=== PATIENT | male | born 1970 | race Caucasian/White ===

== ENCOUNTER 2024-11-13 05:24 | Inpatient (IN) | payer OTHER, SELFPAY ==
[2024-11-12 13:00] VITALS: BP 162/110; BMI 31.1
[2024-11-12 13:37] LABS: Hematocrit 49.3 % (39.0-52.0); Hemoglobin 16.9 g/dL (13.0-18.0); Mean Corp Hgb Conc. 34.3 g/dL (33.0-37.0); Mean Corpuscular Volume 95.0 fL (80.0-94.0); Nucleated Red Blood Cells % 0 % (-); Platelet Count 273 10^3/uL (130-400); Red Cell Dist. Width 13.0 % (11.5-14.5)
[2024-11-12 13:51] LABS: ALT (SGPT) 52 U/L (0-50); AST (SGOT) 48 U/L (17-59); Albumin 4.4 g/dl (3.5-5.0); Alkaline Phosphatase 64 U/L (38-126); Blood Urea Nitrogen 13 mg/dl (9-20); Calcium 8.4 mg/dl (8.4-10.2); Carbon Dioxide 20 mmol/L (22-30); Chloride 106 mmol/L (98-107); Estimated Creatinine Clearance 124 ml/min; Glucose 93 mg/dl (70-99); Potassium 4.5 mmol/L (3.5-5.1); Sodium 140 mmol/L (135-145); Total Protein 7.5 g/dl (6.3-8.2); eGFR > 60.00
[2024-11-12 14:00] VITALS: BP 137/85
--- NOTE | 2024-11-12 14:02 | ED.GENMED ---
History of Present Illness
<Graham Avery PA-C - Last Filed: 11/13/24 16:01>
General
Chief Complaint: Crisis Evaluation
Time Seen by Provider: 11/12/24 13:13
History of Present Illness
History of Present Illness:
54-year-old male presents to the emergency department for evaluation of suicidal ideation. He admits to alcohol intoxication, states he drank 'about a bottle' today. Unable to tell me when his last drink was today. He does not indicate a plan to
me but states 'yeah I thought about it'. He is agitated frequently screaming into the department 'just kill me now I want to be '.
Past History
<Graham Avery PA-C - Last Filed: 11/13/24 16:01>
Past History
ED Past Medical History: CAD, GERD, HTN and Hypercholesterolemia
ED Past Surgical History: Cardiac (Cardiac stent) and Other (Fundoplication)
Patient has exhibited threatening behavior?: No
PSI?: No
Social History
Tobacco: Former smoker
Alcohol: Former (Abstinent since 2012)
Drug: None
Personal:
Living: with family
Employment: Employed
Family History
Family History: Other (Noncontributory)
Review of Systems
<Graham Avery PA-C - Last Filed: 11/13/24 16:01>
Review of Systems
Allergies reviewed?: Yes
All Other Systems: ROS reviewed and negative except as documented in HPI and ROS
Phy Exam
<Graham Avery PA-C - Last Filed: 11/13/24 16:01>
Physical Exam
Physical Exam:
GEN: Well appearing, NAD, WDWN
HEENT: Oral mucosa moist, no scleral icterus
Cardiac: Regular rate
Lung: No respiratory distress, no tachypnea
MSK: No gross deformity or injuries
Skin: Good color, no pallor or jaundice, no rashes
Neuro: AO x3, moves all extremities freely, agitated, non cooperative
Psych: Calm, cooperative
Course
<Graham Avery PA-C - Last Filed: 11/13/24 16:01>
Orders/Labs/Results
Orders:
Orders
11/12/24 13:03
1:1 Observation - Suicide/ Violent Behavior As Directed
11/12/24 13:29
Alcohol Urgent
CBC/With Diff [Complete Blood Count/With Diff] Urgent
CMP [Comprehensive Metabolic Panel] Urgent
11/12/24 14:54
Crisis Consult Urgent
Reason for Consult: SI
11/12/24 22:45
Metoprolol [Lopressor] 5 mg IV NOW STA
11/13/24 00:26
Alcohol Routine
11/13/24 01:16
Amlodipine [Norvasc] 5 mg PO NOW STA
Lisinopril [Zestril] 20 mg PO NOW STA
11/13/24 02:17
Midazolam HCl [Versed] 5 mg IV NOW STA
11/13/24 02:56
Labetalol HCl [Trandate] 10 mg IV NOW STA
11/13/24 04:53
Admit/Transfer Patient As Directed
Co-Sign Provider:
Level of Care: Inpatient admission
Assign to:: Telemetry
Physician / Group: [place]
Diagnosis: Alcohol Withdrawal, Suicidal Ideation
Reason for Telemetry: Arrhythmia
Date to Stop Telemetry: 11/16/24
Time to Stop Telemetry: 11:00
Reason for Hospitalization: Alcohol Withdrawal, Suicidal Ideation
Expected length of stay greater than two midnights?: Yes
ELOS- Estimated Length of Stay in days: 2
I certify the patient meets the requirements for IP care: Yes
PRN Pain Medication Management As Directed
May give lesser potent ordered pain med per pt: Yes
preference::
Protocol:: Medication orders for pain may be administered in a
manner that supports deferring to patient preference
when the pt is:
- Requesting an ordered lesser potent pain medication.
Least to most potent pain medications are defined
as: acetaminophen < NSAID < tramadol < opioids
(morphine, oxycodone, hydromorphone).
- Requesting a lesser dose of the same medication IF
ORDERED.
- Requesting a less intrusive route of administration
if both routes are prescribed by the provider (PO <
IV).
11/13/24 04:54
Code Status As Directed
Resuscitation Status: Full Code
11/13/24 07:23
0.9% Sodium Chloride 1000 ml [Nss] 1,000 ml IV 125 mls/hr
0.9% Sodium Chloride [Nss (Preservative Free)] See Protocol IV PRN PRN
FOLic ACID [Folvite] 1 mg 0.9% Sodium Chloride 50 ml [Nss] 50 ml IV DAILYPRN
HydrALAZINE [Apresoline] 10 mg IV Q6HPRN PRN
Lorazepam [Ativan] 1 mg PO Q2HPRN PRN
Ondansetron Injectable [Zofran] 4 mg IV Q6HPRN PRN
11/13/24 07:36
diazePAM [Valium Injection] 10 mg IV Q1HPRN PRN
diazePAM [Valium Injection] 5 mg IV Q1HPRN PRN
11/13/24 08:00
Amlodipine [Norvasc] 5 mg PO BID
Aspirin Chewable [Low Strength Aspirin] 81 mg PO DAILY
Clonazepam [Klonopin] 1 mg PO BID
FOLic ACID [Folvite] 1 mg PO DAILY
Pantoprazole [Protonix IV] 40 mg IV DAILY
Spironolactone [Aldactone] 25 mg PO DAILY
Thiamine Injection 200 mg IV Q12
11/13/24 11:00
Acetaminophen [Tylenol] 650 mg PO Q4HPRN PRN
Clonidine [Catapres] 0.1 mg PO BID
11/13/24 11:00
Case Management Consult Once
Case Management Consult: Other
Comment: Substance abuse counseling
Consult Notification Routine
Specialty to Notify: Psychiatry
DIETARY IP CONSULT Routine
Reason for Consult: Nutrition support, possible refeeding guidelines
PSYCHIATRY CONSULT Routine
Consulting Provider: Erin Fofana
Was physician already notified: No
Reason for consult: Suicidal ideations
Urine Drug Abuse Screen Routine
Activity As Directed
Activity Level: Ambulate
With Assistance
EKG with chest pain [ECG as needed] As Directed
ECG as needed for:: Chest Pain
I/O [Intake/ Output] As Directed
Frequency: Per unit guidelines
MSAS SCORE As Directed
MSAS Score 0-4: Repeat MSAS every 2 hours until 0-4 for three consecutive assessments, then every 4 hours x 48
hours.
MSAS Score 5-7: For MILD withdrawl symptoms. Repeat MSAS and RASS every 2 hours
MSAS Score 8-11: For MODERATE withdrawal symptoms. Repeat MSAS and RASS every 1 hour. Consider ICU or IMU
level of care.
MSAS Score > 11: For SEVERE withdrawal symptoms. Repeat MSAS and RASS every 1 hour. Notify provider, consider
ICU level of care.
MSAS Additional Instructions: If no improvement or no decrease in score from severe to moderate within 12
hours, consult psychiatry
MSAS Notify Provider: Notify provider if patient requires more than 10 mg of Lorazepam in eight hour period.
Vital Signs As Directed
Frequency: Per unit guidelines
Weight As Directed
Frequency: Daily
Oxygen Therapy [O2 Therapy] [RESP] Routine
Titrate/Wean O2 to maintain O2 sat greater than (%): 94
DX Deep Vein Thrombosis Video Routine
11/13/24 18:00
Enoxaparin Sodium [Lovenox] 40 mg SC QPM
11/14/24 06:00
Basic Metabolic Panel IN AM
Complete Blood Count/No Diff IN AM
LFT [Jqerk-Ommj-Gcugsti] IN AM
Magnesium IN AM
Phosphorus IN AM
11/16/24 08:00
Thiamine HCl [Vitamin B1] 100 mg PO BID
11/16/24 11:00
DC Protocol for Telemetry ONCE
Abnormal Lab Results
11/12/24
13:29
WBC 10.9 H 10^3/uL
(4.8-10.8)
MCV 95.0 H fL
(80.0-94.0)
MCH 32.6 H pg
(27.0-31.0)
Abs Immat Gran (auto) 0.1 H 10^3/uL
(0-0.05)
Absolute Neuts (auto) 7.1 H 10^3/uL
(1.4-6.5)
Absolute Monos (auto) 0.7 H 10^3/uL
(0.1-0.6)
Carbon Dioxide 20 L mmol/L
(22-30)
ALT 52 H U/L
(0-50)
11/12/24 13:29
11/12/24 13:29
Vital Signs
Initial and Last Documented VS:
Initial Vital Signs
Temp Pulse Resp BP Pulse Ox
98.3 F 101 22 162/110 95
11/12/24 13:00 11/12/24 13:00 11/12/24 13:00 11/12/24 13:00 11/12/24 13:00
Last Documented Vital Signs
Temp Pulse Resp BP Pulse Ox
98.3 F 79 14 175/95 95
11/12/24 13:00 11/13/24 07:59 11/13/24 06:30 11/13/24 09:17 11/12/24 14:03
<Chun KnottLisa Sprague, DO - Last Filed: 11/13/24 03:07>
Orders/Labs/Results
Orders:
Orders
11/12/24 13:03
1:1 Observation - Suicide/ Violent Behavior As Directed
11/12/24 13:29
Alcohol Urgent
CBC/With Diff [Complete Blood Count/With Diff] Urgent
CMP [Comprehensive Metabolic Panel] Urgent
11/12/24 14:54
Crisis Consult Urgent
Reason for Consult: SI
11/12/24 22:45
Metoprolol [Lopressor] 5 mg IV NOW STA
11/13/24 00:26
Alcohol Routine
11/13/24 01:16
Amlodipine [Norvasc] 5 mg PO NOW STA
Lisinopril [Zestril] 20 mg PO NOW STA
11/13/24 02:17
Midazolam HCl [Versed] 5 mg IV NOW STA
11/13/24 02:56
Labetalol HCl [Trandate] 10 mg IV NOW STA
11/13/24 04:53
Admit/Transfer Patient As Directed
Co-Sign Provider:
Level of Care: Inpatient admission
Assign to:: Telemetry
Physician / Group: [place]
Diagnosis: Alcohol Withdrawal, Suicidal Ideation
Reason for Telemetry: Arrhythmia
Date to Stop Telemetry: 11/16/24
Time to Stop Telemetry: 11:00
Reason for Hospitalization: Alcohol Withdrawal, Suicidal Ideation
Expected length of stay greater than two midnights?: Yes
ELOS- Estimated Length of Stay in days: 2
I certify the patient meets the requirements for IP care: Yes
PRN Pain Medication Management As Directed
May give lesser potent ordered pain med per pt: Yes
preference::
Protocol:: Medication orders for pain may be administered in a
manner that supports deferring to patient preference
when the pt is:
- Requesting an ordered lesser potent pain medication.
Least to most potent pain medications are defined
as: acetaminophen < NSAID < tramadol < opioids
(morphine, oxycodone, hydromorphone).
- Requesting a lesser dose of the same medication IF
ORDERED.
- Requesting a less intrusive route of administration
if both routes are prescribed by the provider (PO <
IV).
11/13/24 04:54
Code Status As Directed
Resuscitation Status: Full Code
11/13/24 07:23
0.9% Sodium Chloride 1000 ml [Nss] 1,000 ml IV 125 mls/hr
0.9% Sodium Chloride [Nss (Preservative Free)] See Protocol IV PRN PRN
FOLic ACID [Folvite] 1 mg 0.9% Sodium Chloride 50 ml [Nss] 50 ml IV DAILYPRN
HydrALAZINE [Apresoline] 10 mg IV Q6HPRN PRN
Lorazepam [Ativan] 1 mg PO Q2HPRN PRN
Ondansetron Injectable [Zofran] 4 mg IV Q6HPRN PRN
11/13/24 07:36
diazePAM [Valium Injection] 10 mg IV Q1HPRN PRN
diazePAM [Valium Injection] 5 mg IV Q1HPRN PRN
11/13/24 08:00
Amlodipine [Norvasc] 5 mg PO BID
Aspirin Chewable [Low Strength Aspirin] 81 mg PO DAILY
Clonazepam [Klonopin] 1 mg PO BID
FOLic ACID [Folvite] 1 mg PO DAILY
Pantoprazole [Protonix IV] 40 mg IV DAILY
Spironolactone [Aldactone] 25 mg PO DAILY
Thiamine Injection 200 mg IV Q12
11/13/24 11:00
Acetaminophen [Tylenol] 650 mg PO Q4HPRN PRN
Clonidine [Catapres] 0.1 mg PO BID
11/13/24 11:00
Case Management Consult Once
Case Management Consult: Other
Comment: Substance abuse counseling
Consult Notification Routine
Specialty to Notify: Psychiatry
DIETARY IP CONSULT Routine
Reason for Consult: Nutrition support, possible refeeding guidelines
PSYCHIATRY CONSULT Routine
Consulting Provider: Erin Fofana
Was physician already notified: No
Reason for consult: Suicidal ideations
Urine Drug Abuse Screen Routine
Activity As Directed
Activity Level: Ambulate
With Assistance
EKG with chest pain [ECG as needed] As Directed
ECG as needed for:: Chest Pain
I/O [Intake/ Output] As Directed
Frequency: Per unit guidelines
MSAS SCORE As Directed
MSAS Score 0-4: Repeat MSAS every 2 hours until 0-4 for three consecutive assessments, then every 4 hours x 48
hours.
MSAS Score 5-7: For MILD withdrawl symptoms. Repeat MSAS and RASS every 2 hours
MSAS Score 8-11: For MODERATE withdrawal symptoms. Repeat MSAS and RASS every 1 hour. Consider ICU or IMU
level of care.
MSAS Score > 11: For SEVERE withdrawal symptoms. Repeat MSAS and RASS every 1 hour. Notify provider, consider
ICU level of care.
MSAS Additional Instructions: If no improvement or no decrease in score from severe to moderate within 12
hours, consult psychiatry
MSAS Notify Provider: Notify provider if patient requires more than 10 mg of Lorazepam in eight hour period.
Vital Signs As Directed
Frequency: Per unit guidelines
Weight As Directed
Frequency: Daily
Oxygen Therapy [O2 Therapy] [RESP] Routine
Titrate/Wean O2 to maintain O2 sat greater than (%): 94
DX Deep Vein Thrombosis Video Routine
11/13/24 18:00
Enoxaparin Sodium [Lovenox] 40 mg SC QPM
11/14/24 06:00
Basic Metabolic Panel IN AM
Complete Blood Count/No Diff IN AM
LFT [Hqjjx-Hohf-Tnvjopq] IN AM
Magnesium IN AM
Phosphorus IN AM
11/16/24 08:00
Thiamine HCl [Vitamin B1] 100 mg PO BID
11/16/24 11:00
DC Protocol for Telemetry ONCE
Abnormal Lab Results
11/12/24
13:29
WBC 10.9 H 10^3/uL
(4.8-10.8)
MCV 95.0 H fL
(80.0-94.0)
MCH 32.6 H pg
(27.0-31.0)
Abs Immat Gran (auto) 0.1 H 10^3/uL
(0-0.05)
Absolute Neuts (auto) 7.1 H 10^3/uL
(1.4-6.5)
Absolute Monos (auto) 0.7 H 10^3/uL
(0.1-0.6)
Carbon Dioxide 20 L mmol/L
(22-30)
ALT 52 H U/L
(0-50)
11/12/24 13:29
11/12/24 13:29
Vital Signs
Initial and Last Documented VS:
Initial Vital Signs
Temp Pulse Resp BP Pulse Ox
98.3 F 101 22 162/110 95
11/12/24 13:00 11/12/24 13:00 11/12/24 13:00 11/12/24 13:00 11/12/24 13:00
Last Documented Vital Signs
Temp Pulse Resp BP Pulse Ox
98.3 F 79 14 175/95 95
11/12/24 13:00 11/13/24 07:59 11/13/24 06:30 11/13/24 09:17 11/12/24 14:03
<Graham Avery PA-C - Last Filed: 11/13/24 16:01>
MDM/Problems Addressed
MDM/Problems Addressed:
54-year-old male arrives with acute alcohol intoxication and suicidal ideation. He was seen by crisis and while in the emergency department attempted self-harm by strangling himself with monitored cords. He remained on one-to-one observation was
initially placed in restraints however these were gradually removed over the course of the evening. Patient to wait for for medical clearance and sobriety emergency department, at which time he will be placed in a psychiatric facility due to
suicidal intent.
<Graham Avery PA-C - Last Filed: 11/13/24 16:01>
*Pulse Oximetry
SaO2: 95
Oxygen Mode of Delivery: Room air
Patient hypoxic: no
*Critical Care Note
Total Time (30-74mins, 75-104mins- exclusive of procedures): Not Applicable
<Graham Avery PA-C - Last Filed: 11/13/24 16:01>
Update Note
Update Note:
1530: Called to room, along w/ security, by crisis team. During crisis interview, with 1:1 observation, pt used monitor cords to wrap around his neck. Became agitated when staff intervened, screaming 'just let me kill myself!' Pt unable to be
redirected, continues to threaten self harm. Will place in 4 pt soft restraints.
1844: Soft restrains removed x 3, L wrist remains in place, pt contracts for safety. Will remain on 1:1.
2004: Pt reassessed, no complaints. Watching [employer] game in room w/ 1:1 at bedside. Will recheck ETOH at 0000
<Chun Sprague DO - Last Filed: 11/13/24 03:07>
Update Note
Update Note:
1530: Called to room, along w/ security, by crisis team. During crisis interview, with 1:1 observation, pt used monitor cords to wrap around his neck. Became agitated when staff intervened, screaming 'just let me kill myself!' Pt unable to be
redirected, continues to threaten self harm. Will place in 4 pt soft restraints.
1844: Soft restrains removed x 3, L wrist remains in place, pt contracts for safety. Will remain on 1:1.
2004: Pt reassessed, no complaints. Watching [employer] game in room w/ 1:1 at bedside. Will recheck ETOH at 0000
023: Pt now having tremors, feels anxious, bp elevated on repeat measurement. Pt initially given oral meds (he has not been taking his bp meds for over a week). No significant improvement in bp. Pt also given 5mg Versed which resulted in drastic
improvement of symptoms but bp remains elevated. Labetalol 10mg given. AT this point pt will not be suitable for psychiatric placement given acute w/d symptmos. Will ask hospitalist to admit for bp control/withdrawal management.
ED Attending Note
<Graham Avery PA-C - Last Filed: 11/13/24 16:01>
-
Portions of this chart may have been created with voice recognition software.� Occasional wrong word or��sound alike� substitutions may have occurred due to the inherent limitations of voice recognition software.
ED Restraints
<Graham Avery PA-C - Last Filed: 11/13/24 16:01>
Restraints
One hour in person evaluation completed at:: 16:30
Evaluation of the patient's immediate situation completed?: Yes
Eval of patient's reaction to intervention completed?: Yes
Eval of patient's medical & behavioral condition completed?: Yes
Eval of need to continue/terminate restraint completed?: Yes
<Chun Sprague DO - Last Filed: 11/13/24 03:07>
Restraints
Evaluation of the patient's immediate situation completed?: Yes
Eval of patient's reaction to intervention completed?: Yes
Eval of patient's medical & behavioral condition completed?: Yes
Eval of need to continue/terminate restraint completed?: Yes
Discharge Plan
Departure
Patient Disposition: Admit
Date of Disposition: 11/12/24
Time of Disposition: 20:00
Presentation/result/management discussed w/ accepting MD/DO: Hospitalist
Condition: Fair
Discharge Problem:
Alcohol intoxication, Suicidal ideation, Hypertensive emergency, Alcohol withdrawal
Interventions
Interventions:
*Risk Screen - Suicide Last Done: 11/12/24 13:00
*General Assessment Last Done: 11/12/24 13:00
*Neglect/Abuse Screening Last Done: 11/12/24 13:00
*ED COVID-19 Vaccine History Last Done: 11/12/24 13:00
ED-Psychological Assessment Last Done: 11/12/24 23:00
[2024-11-12 22:17] VITALS: BP 231/122
[2024-11-12 22:19] VITALS: BP 231/115
[2024-11-12 22:43] VITALS: BP 204/111
[2024-11-12] MEDS: LOPRESSOR 5 MG IV (23:08)
[2024-11-13] VITALS (35 sets, daily range): BP systolic 149–240; BP diastolic 90–132; BMI 34.4
[2024-11-13] MEDS: ZESTRIL 20 MG PO (01:23)
[2024-11-13] MEDS: NORVASC 5 MG PO ×3 (01:23→19:54)
[2024-11-13] MEDS: VERSED 5 MG IV (02:30)
[2024-11-13] MEDS: TRANDATE 10 MG IV (03:18)
--- NOTE | 2024-11-13 05:00 | HPS.HSE ---
Family Physician
-
Family Physician: NO INTERVIEW UNKNOWN
Chief Complaint
-
Suicidal ideation
History of Present Illness
Patient is a 54y M with PMH significant for ASCVD, hypertension and alcohol use disorder who presents to ED for suicidal ideations. Patient was intoxicated on arrival and notes that he drank 1 bottle total (750ml) of vodka + tequila today. He
reported that he wished to end his life and attempted to strangle himself with telemetry cords during his time in the ED. Patient was seen by Crisis and plan was for psychiatric facility placement; however, he developed symptoms of agitation,
diaphoresis and tremulousness in the ED. His BP was noted to be markedly elevated and did not improve despite oral BP medications. Decision was made to admit patient for alcohol withdrawal and hypertensive urgency prior to Psych placement.
Patient states that he has attempted suicide in the past. He denies any previous psychiatric hospitalizations.
At the time of my examination, patient reports that he no longer wishes to harm himself.
Patient states that he has been drinking about 1/2 to 1 bottle of hard alcohol every day for the past 10 days days.
He notes that he has not been taking his usual medications a prescribed.
He has multidrug resistant hypertension which he states has been well-controlled when he is compliant with his current regimen.
Unfortunately, patient cannot recall his current medications.
Medical History
Past Medical History
Past Medical History: Reports Other
Additional Past Medical History:
ASCVD
Multidrug Resistant Hypertension
Skin Cancer
Alcohol Use Disorder
Major Depression
Past Surgical History: Reports Other
Additional Past Surgical History:
PTCA with Stents
Rotator Cuff Surgery
Skin Cancer Excision
Right LANIE
Social History
Tobacco: Former Smoker (Quit smoking 2 years ago.)
Alcohol: Daily
Drug: None
Family History
Family History: Not pertinent
Allergies / Home Medications
Allergies reflects when Allergies were last updated in [facility].
Home Medications with original date entered in [facility]
Allergy/Medication List:
Patient is unable to confirm his current medications / doses.
If medication reconciliation has not been performed, why?: Medication List N/A
Review of Systems
-
History Source: Patient
A 12 point ROS was completed and negative except as noted: Yes
Constitutional: Denies Fever or Chills
EENT: Denies Sore Throat
Respiratory: Denies Cough or Trouble Breathing
Cardiac: Reports Diaphoresis and Palpitations; Denies Chest Pain
Abdomen/GI: Reports Nausea; Denies Abdominal Pain, Vomiting or Diarrhea
: Denies Dysuria, Frequency or Flank Pain
Musculoskeletal: Denies Joint Pain or Edema
Neurological: Denies Dizzy or Headache
Psych: Reports Depression and Anxiety
Physical Exam
Vital Signs
Vital Signs
Temp Pulse Resp BP Pulse Ox
98.3 F 75 19 181/106 95
11/12/24 13:00 11/13/24 03:50 11/13/24 03:50 11/13/24 03:50 11/12/24 14:03
Physical Exam
General: Other (54y M in no acute distress. )
HEENT: Moist mucous membranes and PERRLA
Respiratory: Clear; No Wheezes, Rales or Rhonchi
Cardiac: S1/S2 and Regular Rhythm; No Murmur
GI: Soft, Non Tender, Non Distended and Normal Bowel Sounds
Musculoskeletal: No Clubbing, No Cyanosis and No Edema
Neuro: AO x 3
Laboratory Results
-
11/12/24 13:29
11/12/24 13:29
Laboratory Results
Total Bilirubin 0.5 mg/dl (0.2-1.3) 11/12/24 13:29
AST 48 U/L (17-59) 11/12/24 13:29
ALT 52 U/L (0-50) H 11/12/24 13:29
Alkaline Phosphatase 64 U/L (38-126) 11/12/24 13:29
Impression/Plan
-
A/P: Patient is a 54y M with PMH significant for hypertension, ASCVD and alcohol use disorder who presents to ED for evaluation of suicidal idations.
Acute Alcohol Withdrawal Syndromes
Alcohol Use Disorder
- Admit for further evaluation and treatment.
- Recent increase in EtOH use according to patient. Last drink was just prior to arrival.
- Developed withdrawal symptoms in the ED - improved with Valium.
- Follow MSAS, BZDs PRN.
- Thiamine, folate, MVI replacement, etc.
- IVFs support.
- Follow for clinical improvement.
Hypertensive Urgency
Multidrug Resistant Hypertension
- Markedly elevated BP in the ED that has not improved much with PO amlodipine or Valium.
- Clonidine and spironolactone PRN for now.
- Need to complete formal med rec in AM to determine accurate / current med list and then resume if appropriate.
- IV hydralazine PRN very high BP.
- Treat alcohol withdrawal symptoms as noted above.
- Adjust regimen as needed for adequate BP control.
Major Depression
Suicidal Ideations
- Patient reported suicidal ideation and attempted to strangle himself with medical devices here in the ED.
- Denies suicidal ideation to me at present.
- Would maintain 1:1 for now.
- Formal Psych evaluation in the AM.
- 302 has been initiated / upheld.
- Patient may benefit from dual diagnosis unit given concurrent alcohol use disorder.
ASCVD
- Stable. No chest pain, dyspnea, etc.
- ASA daily for now pending formal med rec.
- Monitor for any new symptoms.
DVT Prophylaxis: Lovenox
Code Status: Full
[2024-11-13] MEDS: KLONOPIN 1 MG PO (07:59)
[2024-11-13] MEDS: PROTONIX IV 40 MG IV (08:00)
[2024-11-13] MEDS: LOW STRENGTH ASPIRIN 81 MG PO (08:00)
[2024-11-13] MEDS: NSS 1000 IV (08:01)
[2024-11-13] MEDS: THIAMINE INJECTION 200 MG IV ×2 (08:01→19:54)
[2024-11-13] MEDS: NSS (PRESERVATIVE FREE) 10 ML IV (08:01)
[2024-11-13] MEDS: ALDACTONE 25 MG PO (09:17)
--- NOTE | 2024-11-13 09:37 | EDCM ---
Addendum entered by Dai Núñez 11/13/24 12:49:
I spoke to [facility], counselor will call pt and speak to him on the phone and will visit tomorrow when she is at .
Addendum entered by Dai Núñez 11/13/24 09:44:
Currently has 1:1
Original Note:
CM reviewed chart and met with pt bedside in ED. Lives with his and 2 children in 3 story home, no JUAN, full flight to second floor bedroom and full bath.
Independent in ADLs, personal care and ambulation at baseline. No assistive devices, no DME
Confirms prescription coverage.
HX [facility], no hx SNF
PCP: Rivka Sanchez
Pharmacy: [facility]
Discharge plan: Per MD notes, Pt to be discharged to inpatient psych facility for ETOH rehab when stable
--- NOTE | 2024-11-13 12:02 | CON.MD ---
Addendum entered and electronically signed by Ju Heard MD 11/14/24 09:51:
correction the consult below was done on november 13 2024
Original Note:
Consultation - Medical
-
patient seen chart reviewed. this consult done today nov 14. spoke with patient, his and dr rodney. the patient is a 54 year old male who seemed to not recall he had been rx for depression in the past . at one point told me he had and at
another that he hadn't . was able to tell me he was rx about 13 years ago for depression etoh dependence and was hosp in a dual dx unit. he had not made a suicide attempt. he has been under a lot of stress lately with a number of deaths of
those close to him..his mother a cousin and a friend in the last year none of which he mentioned to me. he told me he was not currently depressed and could enjoy self . he also told me he had been consuming etoh in a 'controlled manner' until
thursday. a controlled manner to him means two drinks containing two shots per drink on weekends and maybe when he and go out. i asked him if he could talk to his to tanvi cunningham he said yes. also asked him if she were here and it seemed he did
not recall she did come last night but he had a severe episode of agitation yelling for someone to kill him and wrapping cords around his neck and she left. she did not know he was here but tracked him on her phone and that is how she figured out
where he was. feels he has been depressed over the last year and feels he has been drinking to excess since but otherwise she feels his drinking is controlled and she described the exact pattern of 'controlled' drinking that he describes. he
says he has been sober for very long periods up to four years or more. she says she has never known him to be sober for even a year. he say he sleeps better with etoh. appetite is inc with 40 lb weight gain. he says he can enjoy himself. he
denies sx which would suggest luz. he has been taking klonopin for anxiety 0.5 mg daily for many years prescribed by pcp. he has not seen a psychiatrist
past psych hx see above one hosp many years ago on dual dx unit. says he was depressed then. he could not tell me this unclear if he really did not remember this or was being evasive he did tell me many years ago had si but did not act on it.
as per no guns in the home
medical hx patient w hx ascvd two mi has a stent very high bp now (175/95) and in the past hld gerd obesity was placed in msas protocol. dr patiño and i discussed phenobarb orally arthritis marge upper ext /shoulder issues for some reason
he has taken iron unclear why hgb is 16+ alt minimally elevated macrocytic indices no longer smokes gave it up in 2022 was a heavy smoker
fh aunt completed suicide
social hx patient twice has a d in her thirties from first and a four month old grand they reside in [place] two kids by second 16 and 12 tells me kids worry about him and his drinking works in sales experienced a
number of deaths in past year hobbies travel and working
mse alert ox3 pleasant and cooperative yet i suspect rather evasive at times. no unusual behaviors noted speech and thought process normal no psychosis i have to say mood at this point did not seem depressed although patient may not be totally
honest. he did admit he had expressed si last evening but says not present currently aver intelligence insight judgment lacking
dx etoh use disorder etoh withdrawal r/o major depression
plan patient agrees to remain here for rx of wd. i suspect he is minimizing length of time he has been drinking enormously and explained i feel he is at significant risk for severe wde. he should see [facility]ares to address addiction assess ongoing re
presence of depression needing rx. would check b12 folate and thyroids continue on to one for now given extreme claim of si yesterday psych will follow
--- NOTE | 2024-11-13 12:29 | PHANOTE ---
med rec tech: pt said that he takes 'too many meds to list', however [facility] confirmed that he has not filled anything other than clonazepam since 2023.
[2024-11-13] MEDS: FOLVITE PO (16:26)
[2024-11-13] MEDS: APRESOLINE 10 MG IV (16:30)
[2024-11-13] MEDS: LUMINAL PO (16:31)
[2024-11-13] MEDS: LUMINAL 97.2 MG PO ×2 (16:32→22:03)
[2024-11-13 16:34] LABS: Folate 3.1 ng/ml (2.76-20); Vitamin B12 250 pg/ml (239-931)
[2024-11-13] MEDS: CATAPRES PO (17:05)
[2024-11-13] MEDS: TYLENOL 650 MG PO (17:14)
[2024-11-13] MEDS: LOVENOX 40 MG SC (17:23)
[2024-11-13] MEDS: VALIUM INJECTION 2 MG IV ×2 (17:23→20:06)
[2024-11-13 18:11] LABS: Troponin I < 0.012 ng/ml
--- NOTE | 2024-11-13 19:15 | PTCARENOTE ---
pt came from ED via stretcher; able to walk to his bed, skin flushed, restless with activity; BP 213/113 IV Hydralazine PRN administered with positive effect; 1:1 in the room; MSAS 5 IV PRN Valium administered.
[2024-11-13] MEDS: CATAPRES 0.1 MG PO (19:55)
[2024-11-14 03:26] VITALS: BP 128/74
--- NOTE | 2024-11-14 03:55 | PTCARENOTE ---
Pt. maintained on MSAS protocol. 1:[address] at all times. Safe environment maintained and emotional support provided.
[2024-11-14 08:17] VITALS: BP 170/103
[2024-11-14 08:31] LABS: Hematocrit 46.4 % (39.0-52.0); Hemoglobin 16.0 g/dL (13.0-18.0); Mean Corp Hgb Conc. 34.5 g/dL (33.0-37.0); Mean Corpuscular Volume 97.9 fL (80.0-94.0); Platelet Count 234 10^3/uL (130-400); Red Cell Dist. Width 12.9 % (11.5-14.5)
[2024-11-14 08:42] LABS: ALT (SGPT) 31 U/L (0-50); AST (SGOT) 26 U/L (17-59); Albumin 3.9 g/dl (3.5-5.0); Alkaline Phosphatase 54 U/L (38-126); Blood Urea Nitrogen 11 mg/dl (9-20); Calcium 8.8 mg/dl (8.4-10.2); Carbon Dioxide 27 mmol/L (22-30); Chloride 103 mmol/L (98-107); Estimated Creatinine Clearance > 125 ml/min; Glucose 119 mg/dl (70-99); Magnesium 2.1 mg/dl (1.6-2.3); Potassium 4.4 mmol/L (3.5-5.1); Sodium 136 mmol/L (135-145); Total Protein 6.8 g/dl (6.3-8.2); eGFR > 60.00
[2024-11-14] MEDS: FOLVITE 1 MG PO (09:49)
[2024-11-14] MEDS: CATAPRES 0.1 MG PO ×2 (09:49→20:54)
[2024-11-14] MEDS: LOW STRENGTH ASPIRIN 81 MG PO (09:49)
[2024-11-14] MEDS: LUMINAL 97.2 MG PO ×3 (09:49→21:45)
[2024-11-14] MEDS: NORVASC 5 MG PO ×2 (09:49→20:53)
[2024-11-14] MEDS: NSS (PRESERVATIVE FREE) 10 ML IV (09:50)
[2024-11-14] MEDS: THIAMINE INJECTION 200 MG IV ×2 (09:50→20:47)
[2024-11-14] MEDS: PROTONIX IV 40 MG IV (09:50)
[2024-11-14] MEDS: ALDACTONE 25 MG PO (09:58)
[2024-11-14] MEDS: TYLENOL 650 MG PO (09:58)
--- NOTE | 2024-11-14 11:13 | W.PN.UPDATE ---
Update Note
Progress Note Update
patient seen chart reviewed. discussed with nursing and with dr sorto. the patient is today better able to talk frankly about his depression. he was tearful as he spoke of the losses he has experienced in his life particularly loss of his mother
who suffered from dementia and ultimately had a serious stroke. 'she would not have wanted to live' but he misses her. 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 he acknowledged that he was rather cavalier in adhering to safety standards eg respirator when fire fighting and he smoked on top of that. he has been depressed over the last year and when he is
depressed he just tries to block out his feelings. when he cannot block them out he drinks and it is when drinking that he has suicidal thoughts. .otherwise he would not have thoughts of harming himself. he thinks he can stay sober 'bc i need to'
talked about how hard that is. he said it would be impossible for him to do in patient hosp bc of money issues but he is willing to do iop . he is speaking to [facility] today. we discussed use of lexapro qtc is ok would start with ten mg daily . his
pcp can refill for him in the short term but depending on response he might want to consider a psychiatrist and a therapist. he has [facility] and would have to go through them to find a provider. bp is still high whether that is wd or his
usual bp not clear. yesterday he got two doses of valium as per msas. he is also on phenobarb. he did not appear to be in wd when i saw him this am. dc one to one.patient is not at this point suicidal. if he drinks he understands he could be at
risk for si but he says this is not the legacy he wants to leave his kids. oldest d in [place] with her four month old baby. she is leaving on thursday wants to spend time w them. noted b12 and folate are on the low side. folate being administered.
b12 as per hospitalist. thyroids ok
--- NOTE | 2024-11-14 11:19 | CM ---
Patient seen at bedside with physician and 1:1. Patient seen by psych and pending [facility]ES to see patient today. Patient to be off 1:1 per physician. Patient states he is open to review information about bills and supports, but he feels he will not
qualify. Patient PCP is Dr. Sanchez and he uses the [facility] in [place] for pharmacy needs. Patient feels that he drinks to cope with depression, he is open to taking medication for depression from physician. CM will continue to follow for discharge
planning needs.
Plan; pending [facility]ES assessment and psychiatry assessment/recommendations
--- NOTE | 2024-11-14 11:19 | W.PN.HOSP.TC ---
Today's Communication/Plan
-
need better BP control
apprec psych
likely can d/c 1:1
no signs of withdrawal currently (not tachycardic, not tremulous)
possible d/c tomorrow
[facility] to see patient today
Assessment / Plan
Assessment / Plan
pt is a 54 year old male
Alcohol Use Disorder--Acute Alcohol Intoxication (level on admission was 383) with impending Withdrawal Syndromes- Recent increase in EtOH use according to patient. Last drink was just prior to arrival- Developed withdrawal symptoms in the ED -
improved with Valium- Follow MSAS, BZDs PRN - Thiamine, folate, MVI replacement, etc.--much improved
Major Depression with Suicidal Ideations - Patient reported suicidal ideation and attempted to strangle himself with medical devices here in the ED- Denies suicidal ideation this AM--apprec psych--likely can d/c 1:1 - Patient may benefit from dual
diagnosis unit given concurrent alcohol use disorder--BCares to see patient
Hypertensive Urgency with Multidrug Resistant Hypertension - Markedly elevated BP in the ED that has not improved much with PO amlodipine or Valium - Clonidine and spironolactone PRN for now--BP still running high
ASCVD- Stable. No chest pain, dyspnea, etc - ASA daily for now pending formal med rec - Monitor for any new symptoms.
DVT Proph--Lovenox
Code Status-- Full Code
Anticipated Discharge: Within 24 hours
Subjective/Interval History
-
Date of Service: November 14, 2024
pt no longer suicidal--admits he drinks to self medicate his depression
Objective Data
-
Labs:
Laboratory Results
11/14/24
07:46
WBC 8.4
Hgb 16.0
Hct 46.4
Plt Count 234
Sodium 136
Potassium 4.4
Chloride 103
Carbon Dioxide 27
BUN 11
Creatinine 0.8
Glucose 119 H
Calcium 8.8
Total Bilirubin 1.6 H D
AST 26
ALT 31
Alkaline Phosphatase 54
Vital Signs:
max temp for 24 hours
11/14/24
00:00
Temp 99.1 F
Vital Signs
Temp Pulse Resp BP Pulse Ox
98.2 F 77 20 170/103 96
11/14/24 08:17 11/14/24 09:58 11/14/24 08:17 11/14/24 09:58 11/14/24 08:17
I&O
11/13/24 11/14/24 11/15/24
06:59 06:59 06:59
Intake Total 120 / 120
Balance 120 / 120
Review of Systems
-
All other systems: Reviewed and negative
Psych: Reports Depressed
Physical Exam
-
General: Well Developed, Well Nourished and No Apparent Distress
HEENT: Normocephalic and Atraumatic; Negative Oxygen
Respiratory: Clear to Auscultation; Negative Wheezes or Rhonchi
Cardiac: Regular Rhythm and S1/S2; Negative Murmur or Tachycardic
GI: Soft, Nontender, Nondistended and Normal Bowel Sounds
Musculoskeletal: No Clubbing, No Cyanosis and No Edema
Neuro: Awake and Alert; Negative Tremors
Psych: Calm
[2024-11-14 11:36] VITALS: BP 159/98
[2024-11-14] MEDS: VITAMIN B-12 1000 MCG PO (13:07)
[2024-11-14] MEDS: LEXAPRO 10 MG PO (13:07)
[2024-11-14 15:55] VITALS: BP 152/89
[2024-11-14] MEDS: BYSTOLIC 20 MG PO (16:42)
[2024-11-14] MEDS: APRESOLINE 25 MG PO ×2 (16:43→21:44)
[2024-11-14] MEDS: LOVENOX 40 MG SC (18:17)
[2024-11-14 19:22] VITALS: BP 156/93
[2024-11-14 23:08] VITALS: BP 121/77
[2024-11-15 03:19] VITALS: BP 129/79
[2024-11-15 06:00] VITALS: BMI 34.3
[2024-11-15 08:00] VITALS: BP 151/91
[2024-11-15] MEDS: VITAMIN B-12 1000 MCG PO (08:11)
[2024-11-15] MEDS: ALDACTONE 25 MG PO (08:11)
[2024-11-15] MEDS: BYSTOLIC 20 MG PO (08:11)
[2024-11-15] MEDS: CATAPRES 0.1 MG PO ×2 (08:11→20:39)
[2024-11-15] MEDS: ASPIR LOW (ENTERIC COATED) 81 MG PO (08:12)
[2024-11-15] MEDS: ZESTRIL 40 MG PO (08:12)
[2024-11-15] MEDS: FOLVITE 1 MG PO (08:12)
[2024-11-15] MEDS: NSS (PRESERVATIVE FREE) 10 ML IV (08:13)
[2024-11-15] MEDS: PLAVIX 75 MG PO (08:13)
[2024-11-15] MEDS: NORVASC 5 MG PO ×2 (08:13→20:39)
[2024-11-15] MEDS: LUMINAL 64.8 MG PO ×3 (08:13→22:04)
[2024-11-15] MEDS: THIAMINE INJECTION 200 MG IV ×2 (08:13→20:33)
[2024-11-15] MEDS: PROTONIX IV 40 MG IV (08:14)
[2024-11-15] MEDS: LEXAPRO 10 MG PO (08:53)
[2024-11-15] MEDS: APRESOLINE 25 MG PO ×2 (08:53→16:58)
[2024-11-15 11:37] VITALS: BP 125/81
--- NOTE | 2024-11-15 13:01 | W.PN.HOSP.TC ---
Today's Communication/Plan
-
hopeful d/c to inpt dual diagnosis treatment center today
Assessment / Plan
Assessment / Plan
pt is a 54 year old male
Alcohol Use Disorder--Acute Alcohol Intoxication (level on admission was 383) with impending Withdrawal Syndromes--now resolved-Recent increase in EtOH use according to patient. Last drink was just prior to arrival- Developed withdrawal symptoms in
the ED - improved with Valium- Follow MSAS, BZDs PRN - Thiamine, folate, MVI replacement, etc.--much improved
B12 deficiency--likely due to poor nutrition with ETOH use--cont folate, thiamine, B12 supplements
Major Depression with Suicidal Ideations - Patient reported suicidal ideation and attempted to strangle himself with medical devices while in the ED- Denies suicidal ideation after that--apprec psych--d/c 1:1 - Patient may benefit from dual
diagnosis unit given concurrent alcohol use disorder--BCares to see patient--pt agreeable to inpt treatment
Hypertensive Urgency with Multidrug Resistant Hypertension - Markedly elevated BP in the ED that has not improved much with PO amlodipine or Valium - Clonidine and spironolactone PRN for now--BP improved
ASCVD- Stable. No chest pain, dyspnea, etc - ASA daily for now pending formal med rec - Monitor for any new symptoms.
DVT Proph--Lovenox
Code Status-- Full Code
Anticipated Discharge: Today
Subjective/Interval History
-
Date of Service: November 15, 2024
pt has now agreed to inpt treatment for depression and ETOH
Objective Data
-
Vital Signs:
max temp for 24 hours
11/14/24
23:08
Temp 98.5 F
Vital Signs
Temp Pulse Resp BP Pulse Ox
98.8 F 59 18 125/81 97
11/15/24 11:37 11/15/24 11:37 11/15/24 11:37 11/15/24 11:37 11/15/24 11:37
I&O
11/14/24 11/15/24 11/16/24
06:59 06:59 06:59
Intake Total 120 / 120 480 / 480
Balance 120 / 120 480 / 480
Review of Systems
-
All other systems: Reviewed and negative
Physical Exam
-
General: Well Developed, Well Nourished and No Apparent Distress
HEENT: Normocephalic and Atraumatic
Respiratory: Clear to Auscultation; Negative Wheezes or Rhonchi
Cardiac: Regular Rhythm and S1/S2; Negative Murmur, Tachycardic or Bradycardic
GI: Soft, Nontender, Nondistended and Normal Bowel Sounds
Musculoskeletal: No Clubbing, No Cyanosis and No Edema
Neuro: Awake; Negative Tremors
Psych: Calm
--- NOTE | 2024-11-15 13:48 | CM ---
Addendum entered by Evette Knapp 11/15/24 15:47:
faxed clinical information to [phone]. CM spoke with Marlon from [facility] at [phone].
Original Note:
Patient seen at bedside with patient daughter and physician on [address]. Patient states that he will now agree to go to inpatient and [facility] is working with patient for placement today. CM reviewed with patient and daughter steps following
acceptance. Patient now willing to go. CM spoke with [facility] and she requested call back from [facility] [phone]. CM will continue to follow for discharge planning needs.
Plan;drug and alcohol ; referral to [facility] awaiting response.
fax clinicals to [phone]
--- NOTE | 2024-11-15 15:07 | W.PN.UPDATE ---
Update Note
Progress Note Update
patient seen chart reviewed. discussed with dr sorto and cm ms mcallister. patient's daughter present with patient consent. mr solorzano has had a change of thought since i spoke with him yesterday and since he spoke with leydi this am. he had
previously felt he could not do in pt rehab but since is recognized with his d's help that if he returned home at this point his relapse with etoh would be assured. he is recognizing the power of etoh over him and the need to have a plan of attack
to attain sobriety. also feels he needs to think about the conflict in his marriage which he sees as causing him significant pain. he is now willing to go in patient for rx and i do feel he could go to a straight rehab he is not actively suicidal
at this point. he was quite expressive and articulate today about his issues and would benefit from group and ind therapy . he has started lexapro no major issues. gave cm some names of contacts at two local rehabs where he might be treated. if
he remains here tomorrow will see him
--- NOTE | 2024-11-15 15:20 | W.DCSUMMARY ---
Addendum entered and electronically signed by Jada Danielle MD 11/16/24 15:37:
Patient did not leave due to psych bed availability. Actual discharge date is 11/16/2024.
Original Note:
Discharge Summary
Discharge Data
Date of Admission: 11/13/24
Date of Discharge: 11/15/24
-
Pending Results: No
Hospital Course
Primary care physician : None Listed
Principal Discharge diagnosis : Alcohol use disorder with acute alcohol intoxication followed by impending withdrawal syndromes, B12 deficiency, major depression with suicidal ideations, hypertensive urgency with multidrug resistant hypertension
Chronic Discharge diagnosis : Atherosclerotic cardiovascular disease
Hospital Course : Patient 54-year-old male who was intoxicated on arrival and noted that he drinks or drink 1 bottle of 750 mL of vodka plus tequila on the day of admission. He reported that he wished to end his life and attempted to strangle
himself with the telemetry cords while he was in the emergency department. He was seen by crisis and plan was for psychiatric facility placement. However, he developed symptoms of agitation, diaphoresis and tremulousness. BP was markedly
elevated. It was found that the patient was not taking his oral blood pressure medications. Patient then admitted to drinking about a half to a bottle of hard liquor daily for the past 10 days or so. Patient was admitted.
Problem #1: Alcohol use disorder with acute alcohol intoxication followed by impending withdrawal syndromes. Patient's alcohol level was 383 at the time of admission. To be fair he remembers nothing of his ED visit. He started to develop signs of
withdrawal with agitation, diaphoresis and tremulousness. He was admitted and started on the MSAS protocol along with phenobarbital taper. By the time of my evaluation on 11/14/2024, patient was no longer in withdrawal symptoms.
Tremulousness was negative. Heart rate was not tachycardic nor bradycardic but appropriate. His drug screen was also positive for barbiturates and marijuana.
Problem #2: Vitamin B12 deficiency. In addition to starting the patient on thiamine and folate for repletion, patient was found to be B12 low normal of 250 with a low normal of 239. Based on this, I did call him deficient and started B12
supplements. He should also continue on thiamine and folate at discharge as well. Magnesium was checked and found to be greater than 2.
Problem #3: Major depressive episode with suicidal ideations. Patient was seen by crisis while he was in the emergency department. He attempted to strangle himself with the telemetry cords. He does not remember this at all. He was seen in
consultation by psychiatry and was placed on a one-to-one. Patient has no more suicidal intentions but has now agreed to inpatient dual diagnosis therapy at the persuasion of his daughter. Lexapro was started for depression.
Problem #4: Hypertensive urgency with multidrug resistant hypertension. Patient's blood pressure was quite high here and initially thought to be due to alcohol withdrawal. He was subsequently found to the patient stopped all of his medications
(including clonidine which can cause rebound hypertension) on his own. He did have a renal ultrasound done which did not show renal artery stenosis back in 2022. It is recommended that he potentially get a repeat renal ultrasound as it is now 2
years later and he still has significant hypertension. Once his home medications were reconciled, they were restarted. Blood pressure is much improved.
Problem #5: All other medical issues. These include Atherosclerotic cardiovascular disease. These medical issues were stable during his hospitalization. Medications were continued as able.
Patient is stable for discharge to the inpatient psychiatric facility for alcohol and depression treatments. If there are any questions regarding this dictation or his hospital stay, please do not hesitate to call. Our office number is
[phone].
Discharge Plan
-
Patient Disposition: Psych Facility
Discharge Diagnosis/Procedures: Alcohol use disorder with intoxication and impending withdrawal symptoms, vitamin B12 deficiency, major depression with suicidal ideations, hypertensive urgency with multidrug resistant hypertension, atherosclerotic
cardiovascular disease
Condition: Good
Diet: As tolerated and Regular
Activity: As tolerated
Driving Restrictions: As prior to admission
Bathing Restrictions: None
Referrals:
UNKNOWN,NO INTERVIEW [Family Provider] - in less than 1 week
Prescriptions:
New
amlodipine 5 mg Tablet
5 mg PO BID Qty: 30 0RF
clonidine HCl 0.1 mg Tablet
0.1 mg PO BID Qty: 30 0RF
hydralazine 25 mg Tablet
25 mg PO TID Qty: 30 0RF
escitalopram oxalate 10 mg Tablet
10 mg PO DAILY Qty: 30 0RF
cyanocobalamin (vitamin B-12) [Vitamin B-12] 500 mcg Tablet
1,000 mcg PO DAILY Qty: 0 0RF
folic acid 1 mg Tablet
1 mg PO DAILY Qty: 0 0RF
thiamine mononitrate (vit B1) 100 mg Tablet
100 mg PO BID Qty: 0 0RF
Continued
clopidogrel [Plavix] 75 mg Tablet
75 mg PO DAILY
aspirin 81 mg Tablet,Delayed Release (Dr/Ec)
81 mg PO DAILY
spironolactone 25 mg Tablet
25 mg PO DAILY
lisinopril 40 mg Tablet
40 mg PO DAILY
nebivolol [Bystolic] 20 mg Tablet
20 mg PO DAILY
Discontinued
clonazepam 0.5 mg tablet
1 mg PO DAILY
clonazepam 0.5 mg tablet
0.5 mg PO QPM
clonidine HCl 0.1 mg Tablet
0.1 mg PO DAILY
Theragen Tablet
1 tab PO DAILY
amlodipine [Norvasc] 10 mg Tablet
10 mg PO DAILY
Discharge Orders:
Discharge Patient (As Directed); Ordered 11/15/24
Ordered By: Jada Danielle
Discharge Date and Time
Print Language: ZIMBABWEAN
[2024-11-15 15:27] VITALS: BP 130/67
[2024-11-15] MEDS: LOVENOX 40 MG SC (16:59)
[2024-11-15] MEDS: APRESOLINE PO (22:09)
[2024-11-15 23:00] VITALS: BP 112/67
[2024-11-16 05:44] VITALS: BMI 34.3
[2024-11-16 07:39] VITALS: BP 127/76
[2024-11-16] MEDS: APRESOLINE PO (08:11)
[2024-11-16] MEDS: VITAMIN B-12 1000 MCG PO (08:14)
[2024-11-16] MEDS: ZESTRIL 40 MG PO (08:14)
[2024-11-16] MEDS: FOLVITE 1 MG PO (08:15)
[2024-11-16] MEDS: VITAMIN B1 100 MG PO (08:15)
[2024-11-16] MEDS: LUMINAL 64.8 MG PO (08:15)
[2024-11-16] MEDS: LEXAPRO 10 MG PO (08:15)
[2024-11-16] MEDS: CATAPRES 0.1 MG PO (08:15)
[2024-11-16] MEDS: BYSTOLIC PO (08:15)
[2024-11-16] MEDS: PLAVIX 75 MG PO (08:15)
[2024-11-16] MEDS: NORVASC 5 MG PO (08:15)
[2024-11-16] MEDS: ALDACTONE 25 MG PO (08:15)
[2024-11-16] MEDS: ASPIR LOW (ENTERIC COATED) 81 MG PO (08:15)
[2024-11-16] MEDS: PROTONIX IV 40 MG IV (08:17)
[2024-11-16] MEDS: NSS (PRESERVATIVE FREE) 10 ML IV (08:17)
--- NOTE | 2024-11-16 09:04 | CM ---
Addendum entered by Evette Knapp 11/16/24 10:54:
Per [facility] patient is accepted for discharge to [facility], awaiting response regarding transportation. CM will continue to follow for discharge planning needs.
Original Note:
BRIANA spoke with Guillermo from [facility] and he requested additional information be sent to [place] [phone]. CM faxed requested information to facility and await update from [facility].
Plan; Placement for alcohol treatment
--- NOTE | 2024-11-16 10:48 | W.PN.HOSP.TC ---
Today's Communication/Plan
-
d/c
Assessment / Plan
Assessment / Plan
pt is a 54 year old male
Alcohol Use Disorder--Acute Alcohol Intoxication (level on admission was 383) with impending Withdrawal Syndromes--now resolved-Recent increase in EtOH use according to patient. Last drink was just prior to arrival- Developed withdrawal symptoms in
the ED - improved with Valium- Follow MSAS, BZDs PRN - Thiamine, folate, MVI replacement, etc.--much improved
B12 deficiency--likely due to poor nutrition with ETOH use--cont folate, thiamine, B12 supplements
Major Depression with Suicidal Ideations - Patient reported suicidal ideation and attempted to strangle himself with medical devices while in the ED- Denies suicidal ideation after that--apprec psych--d/c 1:1 - Patient may benefit from dual
diagnosis unit given concurrent alcohol use disorder--BCares to see patient--pt agreeable to inpt treatment
Hypertensive Urgency with Multidrug Resistant Hypertension - Markedly elevated BP in the ED that has not improved much with PO amlodipine or Valium - Clonidine and spironolactone PRN for now--BP improved
ASCVD- Stable. No chest pain, dyspnea, etc - ASA daily for now pending formal med rec - Monitor for any new symptoms.
DVT Proph--Lovenox
Code Status-- Full Code
was supposed to leave yesterday--medically clear for d/c to inpt psych dual diagnosis--waiting for bed
Anticipated Discharge: Today
Subjective/Interval History
-
Date of Service: November 16, 2024
did not leave yesterday as planned--waiting for bed at facility
Objective Data
-
Vital Signs:
Vital Signs
Temp Pulse Resp BP Pulse Ox
98.1 F 54 18 127/76 97
11/16/24 07:39 11/16/24 08:15 11/16/24 07:39 11/16/24 08:15 11/16/24 07:39
I&O
11/15/24 11/16/24 11/17/24
06:59 06:59 06:59
Intake Total 480 / 480 1260 / 1260
Balance 480 / 480 1260 / 1260
Review of Systems
-
All other systems: Reviewed and negative
Physical Exam
-
General: Well Developed, Well Nourished and No Apparent Distress
HEENT: Normocephalic and Atraumatic
Respiratory: Clear to Auscultation; Negative Wheezes or Rhonchi
Cardiac: Regular Rhythm and S1/S2; Negative Murmur
GI: Soft, Nontender, Nondistended and Normal Bowel Sounds
Musculoskeletal: No Clubbing, No Cyanosis and No Edema
--- NOTE | 2024-11-16 11:49 | W.PN.UPDATE ---
Update Note
Progress Note Update
patient seen chart reviewed. spoke with dr sorto and cm ms mcallister. mr solorzano was to leave yesterday but there were insurance issues. he is to be dc today to [facility] and is good with that outcome. says who is a psychologist knows the
program and is also pleased with that disposition. he is calm. noted no signs of wd. bp this am is actually good but it will need monitoring. middle dose of phenobarb is finishing today.recognizing the importance of sobriety at this point though it
will not be easy to achieve prison.; tolerating lexapro. no complaint of ill effects.
[2024-11-16 11:57] VITALS: BP 132/84
[2024-11-16 15:18] VITALS: BP 147/74
== END 2024-11-16 16:08 | DRG 897 ==
LOC: 2 NORTH 05:24
PROVIDERS: Hospitalist; Physician Assistant; ADMITTING PHYSICIAN Hospitalist; ATTENDING PHYSICIAN Internal Medicine; EMERGENCY PHYSICIAN Emergency Medicine; OTHER PHYSICIAN Psychiatry & Neurology Psychiatry
DX: F10.229 Alcohol dependence with intoxication, unspecified (principal); R45.851 Suicidal ideations; I16.1 Hypertensive emergency; Z87.891 Personal history of nicotine dependence; F10.139 Alcohol abuse with withdrawal, unspecified; F10.129 Alcohol abuse with intoxication, unspecified; I10 Essential (primary) hypertension; I1A.0 Resistant hypertension; F32.9 Major depressive disorder, single episode, unspecified; I25.10 Atherosclerotic heart disease of native coronary artery without angina pectoris; E53.8 Deficiency of other specified B group vitamins; Z91.51 Personal history of suicidal behavior
CPT/HCPCS: 80053; 80306; 82077; 82248; 82607; 82746; 83735; 84100; 84443; 84484; 85025; 85027; 93005; 96374; 96375; 99285